=== PATIENT | male | born 2000 | race Caucasian/White ===

== ENCOUNTER → 2018-06-27 17:07 | Outpatient (CLI) | payer BC, SELFPAY ==
--- NOTE | 2018-06-27 17:19 | RAD_ITS ---
STUDY: X-RAY - LEFT ANKLE REASON FOR EXAM: Male, 17 years old. Pain. TECHNIQUE: 3 view(s) of the ankle. COMPARISON: None. FINDINGS: Normal visualized distal tibia and fibula. Normal medial and lateral malleoli. Normal tibiotalar articulation and ankle mortise. Normal visualized talus and calcaneus. The visualized subtalar, talonavicular, calcaneocuboid and tarsal articulations are normal. There is no demonstrated fracture. The soft tissue structures are unremarkable. RAD/Ankle min 3 Views IMPRESSION: Normal x-ray examination of the ankle. Electronically Signed: Geovanny Jones MD at 16:02 EST , Service support ,
== END ==
PROVIDERS: Referring Provider Family Medicine; Visit Provider Family Medicine
DX: M25.572 Pain in left ankle and joints of left foot (principal)
CPT/HCPCS: 73610

== ENCOUNTER → 2018-07-05 15:38 | Outpatient (CLI) | payer BC, SELFPAY ==
--- NOTE | 2018-07-05 15:41 | RAD_ITS ---
STUDY: X-RAY - LEFT ANKLE REASON FOR EXAM: Male, 17 years old. Follow-up sprain. TECHNIQUE: 3 view(s) of the ankle. COMPARISON: Ankle, June 27, 2018. FINDINGS: Normal visualized distal tibia and fibula. Normal medial and lateral malleoli. Normal tibiotalar articulation and ankle mortise. Normal visualized talus and calcaneus. The visualized subtalar, talonavicular, calcaneocuboid and tarsal articulations are normal. The soft tissue structures are unremarkable. RAD/Ankle min 3 Views IMPRESSION: Normal x-ray examination of the ankle. Electronically Signed: David Davis DO at 20:53 EST Tel [phone], Service support ,
== END ==
PROVIDERS: Referring Provider Family Medicine; Visit Provider Family Medicine
DX: S93.439A Sprain of tibiofibular ligament of unspecified ankle, initial encounter (principal)
CPT/HCPCS: 73610